=== PATIENT | male | born 1995 | race Two or more races ===

== ENCOUNTER 2021-04-13 21:47 | Emergency (ER) | payer SELFPAY ==
[~2021-04-13] VITALS: Ht 170.2 cm; Wt 72.6 kg
[2021-04-13 22:05] VITALS: BP 140/63
[2021-04-13 23:14] LABS: Basophils # (auto) 0 10 ^3/uL (0-0.2); Basophils % (auto) 0.1 % (0.0-2.0); Eosinophils # (auto) 0 10 ^3/uL (0-0.8); Eosinophils % (auto) 0.1 % (0.0-7.0); Hematocrit 46.9 % (41.0-53.0); Hemoglobin 15.3 g/dL (13.5-17.5); Lymphocytes # (auto) 0.8 10 ^3/uL (0.4-5.4); Lymphocytes % (auto) 3.6 % (10.0-50.0); Mean Corpuscular Hgb Conc. 32.7 g/dL (32.0-36.0); Mean Corpuscular Volume 91.6 fL (80.0-100.0); Monocytes # (auto) 0.8 10 ^3/uL (0-1.3); Monocytes % (auto) 3.6 % (0.0-12.0); Neutrophils # (auto) 21.6 10 ^3/uL (1.6-8.6); Neutrophils % (auto) 92.6 % (37.0-80.0); Nucleated Red Blood Cells % 0.1 %; Red Blood Cells 5.12 10^6/uL (4.5-5.90); Red Cell Distribution Width 14.8 % (11.8-14.3); White Blood Cell 23.4 10^3/uL (4.4-10.8)
[2021-04-13 23:34] LABS: Albumin 4.1 g/dL (3.4-5.0); Anion Gap 5 (5-15); Blood Urea Nitrogen 18 mg/dL (7-18); Calcium 8.5 mg/dL (8.5-10.1); Carbon Dioxide 24 mmol/L (21-32); Chloride 110 mmol/L (98-107); Glucose 140 mg/dL (74-106); Magnesium 3.2 mg/dL (1.6-2.6); Potassium 5.3 mmol/L (3.5-5.1); Sodium 139 mmol/L (136-145)
[2021-04-13 23:42] LABS: Alanine Aminotransferase 109 U/L (16-61); Alkaline Phosphatase 106 U/L (45-117); Aspartate Aminotransferase 80 U/L (15-37); BUN/Creatinine Ratio 20.2; Bilirubin, Total 0.3 mg/dL (0.2-1.0); Blood Alcohol < 3.0 mg/dL (0-5); GFR African American 132 mL/min; GFR Non-African American 109 mL/min; Total Protein 7.2 g/dL (6.4-8.2)
[2021-04-13 23:48] LABS: Salicylate < 1.7 mg/dL (2.8-20.0)
[2021-04-14 00:13] LABS: Acetaminophen < 2.0 ug/mL (10-30)
[2021-04-14] MEDS ORDERED: SODIUM ZIRCONIUM CYCL 10 GM PAK PO ONE (09:00)
[2021-04-14] MEDS ORDERED: ALBUTEROL SULF 2.5 MG/0.5ML(0.5%) NEB SOLN NEB ONE (09:00)
[2021-04-14] MEDS ORDERED: FUROSEMIDE 20 MG/2 ML VIAL IV ONE (09:00)
[2021-04-14] MEDS ORDERED: cefTRIAXone 1GM/50ML D5W 50 ML IV ONE (09:00)
[2021-04-14] MEDS ORDERED: SODIUM BICARBONATE 8.4% INJ 50ML SYRINGE IV ONE (09:00)
== END 2021-04-14 10:16 | disposition left against medical advice (07) ==
LOC: EDBD 21:47 → ER 21:47
DX: G93.41 Metabolic encephalopathy (principal); E87.5 Hyperkalemia; J40 Bronchitis, not specified as acute or chronic
CPT/HCPCS: 36415; 80053; 80320; 80329; 83735; 85025; 93005

== ENCOUNTER 2021-04-14 21:42 | Emergency (ER) | payer SELFPAY ==
[~2021-04-14] VITALS: Ht 177.8 cm; Wt 77.1 kg
[2021-04-14 21:45] VITALS: BP 121/73
[2021-04-14 22:56] LABS: Basophils # (auto) 0 10 ^3/uL (0-0.2); Basophils % (auto) 0.3 % (0.0-2.0); Eosinophils # (auto) 0.2 10 ^3/uL (0-0.8); Eosinophils % (auto) 1.4 % (0.0-7.0); Hematocrit 40.7 % (41.0-53.0); Hemoglobin 13.5 g/dL (13.5-17.5); Lymphocytes # (auto) 2.6 10 ^3/uL (0.4-5.4); Lymphocytes % (auto) 23.1 % (10.0-50.0); Mean Corpuscular Hemoglobin 29.4 pg (28.0-32.0); Mean Corpuscular Hgb Conc. 33.1 g/dL (32.0-36.0); Mean Corpuscular Volume 88.9 fL (80.0-100.0); Monocytes # (auto) 0.7 10 ^3/uL (0-1.3); Monocytes % (auto) 6.1 % (0.0-12.0); Neutrophils # (auto) 7.9 10 ^3/uL (1.6-8.6); Neutrophils % (auto) 69.1 % (37.0-80.0); Nucleated Red Blood Cells % 0.1 %; Red Blood Cells 4.58 10^6/uL (4.5-5.90); Red Cell Distribution Width 14.2 % (11.8-14.3); White Blood Cell 11.4 10^3/uL (4.4-10.8)
[2021-04-14 23:14] LABS: Albumin 3.7 g/dL (3.4-5.0); Calcium 8.6 mg/dL (8.5-10.1); Potassium 3.5 mmol/L (3.5-5.1)
[2021-04-14 23:29] LABS: BUN/Creatinine Ratio 18.8; Bilirubin, Total 0.5 mg/dL (0.2-1.0); Total Protein 6.8 g/dL (6.4-8.2)
[2021-04-15 01:26] LABS: Urine Bacteria NONE SEEN /hpf (None Seen); Urine Blood Negative /uL (Negative); Urine Specific Gravity 1.018 (1.001-1.035); Urine WBC 2 /hpf (0 - 3)
[2021-04-15 01:41] LABS: Alcohol, Urine < 3.0 mg/dL (0-10); Amphetamine Screen, Urine POSITIVE (NEGATIVE); Barbiturate Scree,Urine NEGATIVE (NEGATIVE); Benzodiazephine Screen, Urine NEGATIVE (NEGATIVE); Cannabinoid Screen, Urine POSITIVE (NEGATIVE); Cocaine Screen, Urine NEGATIVE (NEGATIVE); Opiate Scree,Urine POSITIVE (NEGATIVE); Phencyclidine Screen, Urine NEGATIVE (NEGATIVE)
== END 2021-04-15 02:12 | disposition left against medical advice (07) ==
LOC: ER 21:44
DX: R07.89 Other chest pain (principal); K92.0 Hematemesis; Z53.21 Procedure and treatment not carried out due to patient leaving prior to being seen by health care provider
CPT/HCPCS: 36415; 80053; 80307; 81001; 84484; 85025; 93005